=== PATIENT | male | born 1975 | race Caucasian/White ===

== ENCOUNTER 2016-04-10 17:49 | Emergency (ER) | payer BC ==
[2016-04-10] MEDS ORDERED: MORPHINE 4 MG/ML SYR ONE (20:16)
== END 2016-04-10 20:20 | disposition other institution (70) ==
LOC: ER 17:49
DX: L03.011 Cellulitis of right finger (principal); L02.511 Cutaneous abscess of right hand
CPT/HCPCS: 96372